=== PATIENT | male | born 1945 | race Caucasian/White ===

== ENCOUNTER → 2023-06-29 | Outpatient (CLI) | payer MEDICARE ==
[~2023-06-29] MED LIST: APIX5TAB PO; ATOR40TA71 PO; ESCI-8 PO; METF-444 PO; METO75TA PO
== END | disposition home or self-care (01) ==
LOC: RAH 09:18
PROVIDERS: ATTEND Family Medicine
DX: I72.3 Aneurysm of iliac artery (principal); N28.1 Cyst of kidney, acquired; R79.89 Other specified abnormal findings of blood chemistry
CPT/HCPCS: 76700

== ENCOUNTER → 2023-10-10 | Outpatient (CLI) | payer MEDICARE | END | disposition home or self-care (01) | LOC: SHCH 08:22 | PROVIDERS: ATTEND Internal Medicine Cardiovascular Disease | DX: I08.3 Combined rheumatic disorders of mitral, aortic and tricuspid valves (principal); I48.0 Paroxysmal atrial fibrillation | CPT/HCPCS: 93306 ==

== ENCOUNTER 2024-02-18 05:42 | Observation (INO) | payer MEDICARE ==
[2024-02-15 10:28] LABS: CREATININE 0.8 mg/dL (0.5-1.3); POTASSIUM 4.4 mmol/L (3.5-5.1)
[2024-02-15 10:47] VITALS: BP 137/92; PULSE 62; RESP 16; TEMP 97.3
--- NOTE | 2024-02-15 10:53 | EKG ---
[facility] Test Date: 2024-02-15 Test Time: 11:00:12 Pat Name: SHILA LITTLE Department: [facility] Room: Gender: M [employer] Tender: [id number] : 1945 Requested By: ELLIS ZHU Order Number: [id number] Reading MD: Ellis Zhu Measurements Intervals [place] Rate: 65 P: 0 [place]: 0 QRS: 48 QRSD: 120 T: 145 QT: 445 QTc: 465 Interpretive Statements Atrial fibrillation Nonspecific intraventricular conduction delay Probable anteroseptal infarct, old Abnormal T, probable ischemia, lateral leads Compared to ECG 05/11/2016 02:58:54 Intraventricular conduction delay now present T-wave abnormality now present Possible ischemia now present Sinus rhythm no longer present Atrial premature complex(es) no longer present First degree AV block no longer present Myocardial infarct finding still present Electronically Signed On 02-15-2024 16:16:24 MASH GRINDER by Ellis Zhu Please click the below link to view image of tracing.
[2024-02-15 10:58] LABS: B-TYPE NATRIURETIC PEPTIDE 283 pg/mL (0-100)
[2024-02-15 11:00] LABS: BASOPHILS # (AUTO) 0.05 K/uL (0.00-0.20); BASOPHILS % (AUTO) 0.8 % (0.0-5.0); EOSINOPHILS # (AUTO) 0.11 K/uL (0.00-0.70); EOSINOPHILS % (AUTO) 1.7 % (0.0-8.0); HEMATOCRIT 40.5 % (42-54); IMMATURE GRANULOCYTE ABSOLUTE 0.02 K/uL (0-1); LYMPHOCYTES # (AUTO) 1.1 K/uL (1.0-4.8); LYMPHOCYTES % (AUTO) 17.4 % (21.0-51.0); MEAN CORPUSCULAR HEMOGLOBIN 32.4 pg (27.0-33.0); MEAN CORPUSCULAR HGB CONC 32.8 g/dL (32.0-36.0); MEAN CORPUSCULAR VOLUME 98.5 fL (79-99); MONOCYTES # (AUTO) 0.6 K/uL (0.1-1.0); MONOCYTES % (AUTO) 9.2 % (3.0-13.0); NEUTROPHILS # (AUTO) 4.5 K/uL (1.8-7.7); NEUTROPHILS % (AUTO) 70.6 % (40.0-77.0); PLATELET COUNT (AUTO) 181 K/uL (130-400); RED BLOOD CELL COUNT(AUTO) 4.11 MIL/uL (4.50-6.20); RED CELL DISTRIBUTION WIDTH 14.5 % (11.0-15.5); WHITE BLOOD COUNT (AUTO) 6.3 K/uL (4.8-10.8)
[2024-02-15 11:19] LABS: PARTIAL THROMBOPLASTIN TIME 30.8 SEC (26.3-35.5); PROTHROMBIN TIME 14.3 SEC (9.6-11.6)
[2024-02-15 11:20] LABS: INR 1.35 (0.85-1.15)
[2024-02-15 11:27] LABS: APPEARANCE,URINE CLEAR (CLEAR); BILIRUBIN,URINE NEGATIVE (NEGATIVE); COLOR,URINE YELLOW (YELLOW); GLUCOSE, URINE (UA) NEGATIVE (NEGATIVE); KETONES,URINE 5 mg/dL (NEGATIVE); LEUKOCYTE ESTERASE ,URINE NEGATIVE Leu/uL (NEGATIVE); NITRATE,URINE NEGATIVE (NEGATIVE); OCCULT BLOOD,URINE LARGE (NEGATIVE); PH,URINE 5.5 (5.0-8.0); PROTEIN,URINE 20 mg/dL (NEGATIVE)
[2024-02-15 11:29] LABS: ADD UA MICROSCOPIC YES
[2024-02-15 11:44] LABS: MUCUS,URINE RARE LPF (None Seen); RBC,URINE TNTC /HPF (0-1); SQUAMOUS EPITHELIAL CELL,UR RARE /HPF (0-2)
--- NOTE | 2024-02-15 11:45 | HMCIMG ---
CHEST 1VW HISTORY: Preop COMPARISON: None FINDINGS: A frontal projection of the chest was obtained. No acute pulmonary infiltrates is seen. The heart is borderline enlarged. Degenerative changes are seen. Aortic calcifications are seen. Prominent interstitial markings are seen. IMPRESSION: 1. No acute pulmonary infiltrate is seen.
--- NOTE | 2024-02-15 15:23 | NUR ---
RE: LABS REPORTED PT/INR RESULTS TO ELISABET CRISTOBAL. NO NEW ORDERS RECEIVED.
[~2024-02-18] VITALS: Ht 175.3 cm; Wt 88.5 kg
[2024-02-18] VITALS (18 sets, daily range): BP systolic 140–160; BP diastolic 86–100; PULSE 62–88; RESP 16–20; TEMP 97.6–98.7; O2SAT 94–98
[~2024-02-18 05:42] MED LIST changes: +GLIM4TAB36 PO; +LOSA25TA41 PO; -METF-444 PO; +METO25TA6 PO; -METO75TA PO; +PRIMIDONE PO
[2024-02-18] MEDS: 0.9%NACL 1000ML 1,000 ML IV ONE (06:44)
[2024-02-18] MEDS ORDERED: LIDOCAINE HCL 400MG/20ML VIAL ONE (07:11)
[2024-02-18] MEDS ORDERED: IOHEXOL-350 50ML VIAL IV ONE (07:11)
[2024-02-18] MEDS ORDERED: HEParin 10,000 UNIT/10ML (1,000 UNIT/ML) VIAL ONE (07:11)
[2024-02-18] MEDS ORDERED: IOHEXOL 350 MG/ML 100ML INFUS..BTL IV ONE (07:11)
[2024-02-18] MEDS ORDERED: HEParin-NS 1,000 UNIT/500 ML 1,000 ML IV ONE (07:11)
[2024-02-18] MEDS ORDERED: NITROGLYCERIN 50MG VIAL ONE (07:11)
[2024-02-18] MEDS ORDERED: FENTanyl CITRate PF 50 MCG/1 ML 2ML VIAL ONE (07:28)
[2024-02-18] MEDS ORDERED: MIDAZOLAM HCL 1 MG/ML 2ML VIAL ONE ×2 (07:28→09:29)
[2024-02-18] MEDS ORDERED: BIVALIRUDIN 250 MG/VIAL IV ONE ×2 (08:05→08:58)
[2024-02-18] MEDS ORDERED: HEParin-NS 1,000 UNIT/500 ML 500 ML IV ONE ×2 (08:13→10:07)
[2024-02-18] MEDS ORDERED: IOHEXOL-350 75 ML VIAL IV ONE (09:52)
[2024-02-18] MEDS ORDERED: ASPIRIN 81MG CHEW TAB ONE (09:57)
[2024-02-18] MEDS ORDERED: TICAGrelor 90 MG TABLET ONE (09:57)
--- NOTE | 2024-02-18 10:27 | PRN ---
PROCEDURES: 1. Right common femoral arterial sheath placement. Six Samoan and then and then seven Samoan upgrade 2. Selective coronary angiogram. 3. Left heart catheterization. 4. Left ventriculogram. 5. Right heart catheterization 6. Right common femoral vein sheath placement seven Samoan Seven. Lithotripsy angioplasty and angioplasty to proximal mid LAD with the use of a 3 mm and 4 mm lithotripsy balloon as well as a 2 mm 2.5 mm and 3 mm balloon semi compliant Eight. 3.5 mm by 22 mm jaqueline Genesee stent to mid LAD deployed to 3.80 mm And 4 mm x 26 mm jaqueline Genesee stent to proximal and mid LAD in overlapping fashion deployed to 4 mm INDICATION: Chest pain Class three anginal line moderate MR DESCRIPTION OF PROCEDURE: The patient was brought to the catheterization suite and prepped and draped in sterile fashion. IV was started, and not already in place and both groins were exposed for arterial access. 1% lidocaine was used for local anesthesia and then a micropuncture kit was used to gain access once free-flowing blood was seen, modified Seldinger technique was utilized to place a 6 Samoan sheath into the right common femoral artery. Same technique was utilized to place a seven Samoan sheath in the right common femoral vein. Next, preformed JL4 and JR 4 catheters were used to selectively engage the [place] coronary vessels and multiple hand contrast injections were performed in different views to define the coronary anatomy. Next a 6 Samoan angled pigtail was used to cross the aortic valve. Pressure measurements were obtained and then right heart catheterization was performed. Protocol was followed. O2 saturations were obtained. There was however issues related to getting appropriate wedge and after diagnostic study had showed patient had critical LAD stenosis it was felt no further studies in the right heart needed to be performed. Catheter was pulled. A left ventriculogram was done in the 30 OSPINA position. Initial findings are as described below. FINDINGS: The left main artery trifurcates into the LAD ramus intermedius and left circumflex vessel and it was calcified with no significant stenosis present. The left anterior descending artery in its proximal mid segment calcified stenosis noted of 85-90%. After a large diagonal branch one there is noted to be 90% stenosis present. Ramus intermediate is free of any significant disease. The left circumflex artery was a nondominant system free of stenosis. The right coronary artery is a dominant vessel giving rise to the RPDA and RPL and has no stenosis in the body of this artery. Right heart catheterization revealed right ventricular systolic pressure 40/7 with a pulmonary artery pressure of 46/20. O2 saturations revealed no step-up and step-down. Cardiac output was calculated at 3.97 with a cardiac index of 1.94 INTERVENTIONAL REPORT: [] After diagnostic angiography was performed it was felt intervention should be done to LAD. We were a six Samoan system and initially started with a six Samoan system in one with the a capital Q five guide catheter into the left coronary artery. A run-through wire was then placed apical LAD under fluoroscopic guidance. After attempts were made to pass a lithotripsy balloon unsuccessfully then a guide liner six Samoan system was then put in place and we were still unable to deliver the shockwave balloon. We eventually went with a 2-0 by 12 sponge and balloon to pre dilate the mid LAD by diagonal branch 1. And went up to 2.15 mm for multiple inflations. Done with a 014 catheter we then exchanged the run-through wire were then iron man or grand slam wire for more support and then attempts were made to pass the 4 x 12 lithotripsy balloon to the mid LAD but were unsuccessful but I did use it to treat for approximately six treatments of the proximal and mid LAD up to 4 mm. Next attempts were made to pass a 3 mm shockwave distally but were unsuccessful. We are exchanging equipment we lost the system and it was at that time I decided to upsized to a seven Samoan system there was not a Q five guide catheter available but we did find a Q 4.5 guide catheter seven Samoan system and I went back down with the run-through wire. We then used a seven Samoan guide liner and placed a 3 mm by 12 mm shockwave system and a total of 10 beats were were done in the mid distal LAD. Next a 3 mm x 20 mm balloon was then placed into the same region and further dilated the entirety of the proximal and mid LAD. Next a 3.5 mm x 22 mm jaqueline Genesee stent was then placed into the mid LAD after diagonal branch 1. And deployed to 3.80 mm. Next a 4 mm by 26 mm jaqueline Genesee stent was then placed in an overlapping fashion with previously placed stent and deployed to 4.0 mm. Follow up contrast injection well no evidence of dissection or perforation with IVONNE three flow noted. It should be noted that diagonal branch 1. Was a large vessel with IVONNE three flow noted some ostial plaque redistribution seen. RECOMMENDATIONS: Patient will stay in the hospital overnight for IV hydration. We will hold off on transesophageal echocardiogram. Reschedule DONNA for tomorrow andres. YENI GALLEGO MD Feb 18, 2024 10:27
[2024-02-18] MEDS ORDERED: MIDAZOLAM HCL 1 MG/ML 5ML VIAL IV PRN (10:30)
[2024-02-18] MEDS ORDERED: acetaMINOPHEN WITH coDEINE 1 TAB TAB PO PRN (10:30)
[2024-02-18] MEDS ORDERED: DEXTROSE 50%-WATER 50 ML DISP.SYRIN IV PRN (10:30)
[2024-02-18] MEDS ORDERED: NITROGLYCERIN 0.4 MG SL TAB SL PRN (10:30)
[2024-02-18] MEDS ORDERED: GLUCAGON 1MG KIT 1 MG ML IM PRN (10:30)
[2024-02-18] MEDS: INSULIN humuLIN R 100 UNIT/ML 3ML SQ SCH (11:30)
[2024-02-18] MEDS ORDERED: IpraTROPium 0.5 MG/2.5 ML INH IH PRN (11:30)
[2024-02-18] MEDS ORDERED: ondanSETRON 4MG INJ IVP PRN (11:30)
[2024-02-18] MEDS: BUDESONIDE 0.5 MG/2 ML INH IH SCH (11:35)
--- NOTE | 2024-02-18 11:48 | HP ---
[facility] HISTORY AND PHYSICAL Date of Service: Feb 18, 2024 Time of Service: 11:48 HISTORY OF PRESENT ILLNESS: Date of service: 02/18/2024, [place] [facility] [place], 78-year-old male with history of hypertension, hyperlipidemia, type 2 diabetes mellitus, peripheral arterial disease, prior history of atrial flutter maintained on chronic anticoagulation with Eliquis, obstructive sleep apnea who is status post cardiac catheterization today. Patient does have underlying history of intermittent symptoms of shortness of breath with exertional activities. Patient was seen by Dr. Zhu with Cardiology as outpatient and underwent 2D echocardiogram which showed findings of significant mitral regurgitation. Plan was for cardiac catheterization today. Patient was found to have 85-90% stenosis involving the proximal to mid LAD. Patient underwent lithotripsy with angioplasty and MARITO stent placement to proximal and mid LAD. Plan is for patient to undergo DONNA tomorrow to assess severity of mitral regurgitation. Patient was seen at bedside postprocedure and denies significant chest pressure. He reports having mild shortness of breath postprocedure. Denies significant lower extremity swelling. We will monitor this patient closely. REVIEW OF SYSTEMS CONSTITUTIONAL: Denies fevers, chills, or night sweats. No unintentional weight loss reported. NEUROLOGICAL: Denies headache, amaurosis fugax, motor weakness, sensory deficit, vertigo/spinning sensation, gait abnormalities, or tremors. ENT: No hearing loss, otalgia, otorrhea, rhinitis, rhinorrhea, hoarseness, or sore throat. CARDIOVASCULAR: Denies any exertional angina, dyspnea on exertion, orthopnea, p aroxysmal nocturnal dyspnea, palpitations, life-threatening arrhythmias, claudication. PULMONARY: Denies any cough, congestion, reports having mild shortness of breath postprocedure SLEEP: Denies morning headaches, daytime somnolence or napping. Denies difficulty falling asleep, staying asleep, waking from sleep. Denies knowledge of snoring. GASTROINTESTINAL: Denies any type of dysphagia to either liquids or solids. Denies nausea, vomiting, pyrosis, early satiety, abdominal pain, diarrhea, constipation, or changes in stool consistency or caliber. Denies coffee-ground emesis, hematemesis, hematochezia, or melanotic stools. GENITOURINARY: Denies frequency, urgency, nocturia, hematuria or incontinence (Storage/Irritative symptoms.) Low urinary stream, straining to void, urinary intermittency or hesitancy, splitting of the voiding stream, terminal dribbling. ENDOCRINOLOGIC: Denies polyuria, polydipsia, polyphagia or heat/cold intolerances. HEMATOLOGIC: Denies thrombophilia/previous clots, or coagulopathy/bleeding disorders. ONCOLOGIC: Denies personal history of malignancy. DERMATOLOGIC: Denies rashes or pruritus. PSYCHIATRIC: Denies any suicidal or homicidal ideation. Denies hallucinations. PAST MEDICAL HISTORY: Type 2 diabetes mellitus, hyperlipidemia, hypertension, peripheral arterial disease, history of atrial flutter/atrial fibrillation with history of cardioversion in 2019, obstructive sleep apnea PAST SURGICAL HISTORY: History of hernia surgery, right knee surgery, history of eye surgery PAST SOCIAL HISTORY: Patient denies any active smoking or alcohol consumption, independent with ADLs and IADLs FAMILY HISTORY: Reports family history of type 2 diabetes mellitus Allergies: Denies known drug allergies Home medications: Glimepiride 4 mg b.i.d., losartan 25 mg daily, metoprolol tartrate 25 mg b.i.d., primidone 25 mg HS, apixaban 5 mg b.i.d., atorvastatin 40 mg daily, escitalopram 10 mg daily Medications: Coded Allergies: No Known Drug Allergies (Unverified Allergy, Unknown, 05/09/16) PHYSICAL EXAM GENERAL APPEARANCE: The patient is awake, alert, and oriented, in no acute cardiopulmonary distress. NEUROLOGICAL: Cranial nerves II-XII grossly intact. Motor is 5/5 in bilateral upper and lower extremities proximal to distal. No sensory deficits. HEENT: Face is symmetric. Pupils are equal and reactive. Extraocular movements are intact. NECK: Supple. No JVD. No thyromegaly. No submental, submandibular, pre- /postauricular, occipital or supraclavicular lymphadenopathy. CHEST: Normal chest expansion. No Telemetry. LUNGS: Absence of any rales, rhonchi or any wheezing. CARDIOVASCULAR: Regular. S1 and S2 normal. No appreciable rubs, murmurs or gallops. ABDOMEN: Soft, nontender, and nondistended. There is no rebound, voluntary gu arding, or rigidity. : Deferred. No Garcia. EXTREMITIES: Non-edematous and not cyanotic. No clubbing. Good capillary refill. SKIN: No skin breakdown. Vital Sign (Last 24 Hours) 02/18/24 02/18/24 02/18/24 06:15 11:39 11:40 Temp 97.9 Pulse 62 Resp 20 B/P (MAP) 140/92 Pulse Ox 95 O2 Delivery N/Cannula Low lpm O2 Flow Rate 3.0 LABS: Laboratory: Test 02/18/24 06:19 Range/Units Whole Blood Glucose 102 70-110 MG/DL Current Medications Medications (Trade) Dose Ordered Sig/Minh Route PRN Reason Start Time Stop Time Status Last Admin Dose Admin Acetaminophen/ Codeine Phosphate (TYLenol-coDEINE TAB) 1 tab Q4H PRN PO PAIN LEVEL 1 TO 3 02/18/24 10:30 03/19/24 10:29 Apixaban (EliquIS) 5 mg BID PO 02/18/24 21:00 03/19/24 20:59 Atorvastatin Calcium (LIPItor 40MG) 40 mg DAILY PO 02/19/24 09:00 03/20/24 08:59 Budesonide (Pulmicort 0.5 Mg/2ml) 0.5 mg Q12H IH 02/18/24 11:30 03/19/24 11:29 02/18/24 11:35 0.5 MG Clopidogrel Bisulfate (plaVIX 75MG) 75 mg DAILY PO 02/19/24 09:00 03/20/24 08:59 Dextrose (D50w) 50 ml AD PRN IV HYPOGLYCEMIA PROTOCOL 02/18/24 10:30 03/19/24 10:29 Fentanyl Citrate (FENTanyl CITRate PF 50 MCG/ 1 ML 2ML VIAL) 100 mcg AD PRN IVP SEDATION 02/18/24 10:30 Glucagon (Glucagon 1mg Kit) 1 mg AD PRN IM HYPOGLYCEMIA PROTOCOL 02/18/24 10:30 03/19/24 10:29 Home Med (Home Medication) (Escitalopram Oxalate 10 MG) DAILY PO 02/19/24 09:00 03/20/24 08:59 Insulin Human Regular (humuLIN R 100 UNIT/ML 3ML) INSULIN SLIDING SCAL... ACHS SQ 02/18/24 11:30 03/19/24 11:29 Ipratropium [place] (AtrovENT UD) 0.5 MG Q6H PRN IH SHORTNESS OF BREATH 02/18/24 11:30 03/19/24 11:29 Losartan Potassium (CozAAR 25MG TAB) 25 mg AM PO 02/19/24 09:00 03/20/24 08:59 Metoprolol Tartrate (loprESSOR) 25 mg BID PO 02/18/24 21:00 03/19/24 20:59 Midazolam HCl (Versed) 5 mg ONCE PRN IV SEDATION 02/18/24 10:30 02/18/24 11:22 DC Midazolam HCl (Versed) 5 mg ONCE PRN IVP SEDATION 02/18/24 11:30 Miscellaneous Medication (Glimepiride ) 5 mg BID PO 02/18/24 21:00 02/18/24 10:46 DC Nitroglycerin (Nitrostat) 0.4 mg AD PRN SL CHEST PAIN 02/18/24 10:30 03/19/24 10:29 Ondansetron HCl (zoFRAN 4MG INJ) 4 mg Q6H PRN IVP NAUSEA/VOMITING 02/18/24 11:30 03/19/24 11:29 Primidone (Mysoline) 25 mg HS PO 02/18/24 21:00 03/19/24 20:59 Sodium Chloride 1,000 ml @ 100 mls/hr Q10H IV 02/18/24 10:30 02/18/24 16:29 DIAGNOSTICS / RADIOLOGY: SERVICE [id number] REASON: PRE OP ORDERING PHYSICIAN: YENI ZHU MD PROCEDURE: CXR1VW - CHEST 1VW CHEST 1VW HISTORY: Preop COMPARISON: None FINDINGS: A frontal projection of the chest was obtained. No acute pulmonary infiltrates is seen. The heart is borderline enlarged. Degenerative changes are seen. Aortic calcifications are seen. Prominent interstitial markings are seen. IMPRESSION: 1. No acute pulmonary infiltrate is seen. DICTATED BY: JUA NPABLO HERNANDEZ MD DATE: 02/15/24 1142 ELECTRONICALLY SIGNED BY: JUAN PABLO HERNANDEZ MD DATE: 02/15/24 1145 ASSESSMENT: Status post cardiac catheterization with angioplasty and stenting to the proximal-mid LAD, by Dr. Zhu, 02/18/2024 Underlying history of moderate to severe mitral regurgitation, POA, pending DONNA assessment History of shortness of breath, POA Underlying history of obstructive sleep apnea, POA Hypertension, POA Hyperlipidemia, POA Peripheral arterial disease, POA History of atrial fibrillation/atrial flutter, POA History of chronic anticoagulation with Eliquis as outpatient, POA Type 2 diabetes mellitus, POA PLAN: Patient will be admitted to cardiac telemetry floor postprocedure Continue with aspirin and Eliquis post LAD stent placement Plan is for DONNA for assessment of severity of mitral regurgitation tomorrow by Dr. Zhu, patient will be kept NPO past midnight Continue with home medications once reconciled Continue with CPAP therapy at night order selector O2 sats closely, we will obtain a chest x-ray for the morning All labs will be repeated in the morning Patient will be started on Pulmicort twice daily and ipratropium nebulizers q.6 hours p.r.n. GI prophylaxis with Pepcid, DVT prophylaxis with Eliquis Date of service: 02/18/2024. Plan of care was discussed patient and family at bedside, Indra Weathers MD Advanced Care Planning: Which of the following were discussed: Hospice care: Yes __ No _X_ Therapeutic options: Yes _X_ No __ Advance directives: Yes _X_ No __ Other discussions: Discussed with who?: Patient Voluntary nature of this service was explained to the patient? Yes _x_ No __ Amount of time spent: 20 minutes INDRA WEATHERS MD Feb 18, 2024 11:48
[2024-02-18] MEDS: 0.9%NACL 1000ML 1,000 ML IV SCH (12:10)
[2024-02-18] MEDS: FENTanyl CITRate PF 50 MCG/1 ML 2ML VIAL IVP STA (14:23)
[2024-02-18] MEDS ORDERED: hydrALAZine 20MG/ML VIAL IV PRN (20:00)
[2024-02-18] MEDS: APIXaban 5 MG TABLET PO SCH (20:49)
[2024-02-18] MEDS: FAMOTIDINE 20MG TAB PO SCH (20:49)
[2024-02-18] MEDS: metoPROLOL tartRATE 25 MG TAB PO SCH (20:49)
[2024-02-18] MEDS: PRIMIDONE 50 MG TAB PO SCH (20:50)
[2024-02-18] MEDS ORDERED: GLIMEPIRIDE 5 MG PO SCH (21:00)
[2024-02-19 00:18] VITALS: BP 147/78; PULSE 66; RESP 20; TEMP 97.1
[2024-02-19 03:46] VITALS: BP 133/103; PULSE 69; RESP 17; TEMP 97.9
[2024-02-19 04:50] LABS: BASOPHILS # (AUTO) 0.06 K/uL (0.00-0.20); BASOPHILS % (AUTO) 0.8 % (0.0-5.0); EOSINOPHILS # (AUTO) 0.18 K/uL (0.00-0.70); EOSINOPHILS % (AUTO) 2.4 % (0.0-8.0); HEMATOCRIT 35.6 % (42-54); IMMATURE GRANULOCYTE ABSOLUTE 0.02 K/uL (0-1); LYMPHOCYTES # (AUTO) 1.2 K/uL (1.0-4.8); LYMPHOCYTES % (AUTO) 15.7 % (21.0-51.0); MEAN CORPUSCULAR HEMOGLOBIN 32.2 pg (27.0-33.0); MEAN CORPUSCULAR HGB CONC 33.1 g/dL (32.0-36.0); MEAN CORPUSCULAR VOLUME 97.3 fL (79-99); MONOCYTES # (AUTO) 0.8 K/uL (0.1-1.0); MONOCYTES % (AUTO) 10.3 % (3.0-13.0); NEUTROPHILS # (AUTO) 5.4 K/uL (1.8-7.7); NEUTROPHILS % (AUTO) 70.5 % (40.0-77.0); PLATELET COUNT (AUTO) 148 K/uL (130-400); RED BLOOD CELL COUNT(AUTO) 3.66 MIL/uL (4.50-6.20); RED CELL DISTRIBUTION WIDTH 14.3 % (11.0-15.5); WHITE BLOOD COUNT (AUTO) 7.6 K/uL (4.8-10.8)
[2024-02-19 04:55] LABS: ALBUMIN 3.1 g/dL (3.5-5.0); BILIRUBIN,TOTAL 0.9 mg/dL (0.2-1.0); CREATININE 0.8 mg/dL (0.5-1.3); MAGNESIUM 1.7 mg/dL (1.80-2.40); POTASSIUM 3.7 mmol/L (3.5-5.1); TOTAL PROTEIN, SERUM 6.3 g/dL (6.0-8.3)
[2024-02-19] MEDS ORDERED: PoTASSium chloRIDE 20MEQ/100ML 100 ML IV PRN (05:30)
[2024-02-19] MEDS ORDERED: PoTASSium chl 10% ELIXIR 20MEQ 20 MEQ/15 ML UDCUP PO PRN (05:30)
[2024-02-19] MEDS: MAGNESIUM 2GM PREMIX 50ML 50 ML IV PRN (05:44)
[2024-02-19] MEDS: PoTASSium chloRIDE 20MEQ ER 20 MEQ ERTAB PO PRN (05:45)
[2024-02-19 07:24] VITALS: PULSE 74; RESP 19; O2SAT 98
[2024-02-19 07:40] VITALS: BP 140/96; PULSE 82; RESP 20; TEMP 97.6
[2024-02-19] MEDS: LIDOCAINE HCL 2% VISCOUS 15 ML UDCUP PO ONE (07:51)
[2024-02-19] MEDS: LIDOCAINE HCL 2% VISCOUS 15 ML UDCUP ONE (07:51)
--- NOTE | 2024-02-19 08:37 | PN ---
PROGRESS NOTE PROBLEM LIST: Unstable angina Critical LAD stenosis Status post lithotripsy angioplasty and stent placement to proximal mid LAD, please see separate report Moderate MR INTERIM HISTORY OF PRESENT ILLNESS: Patient did well overnight no complaints of chest pain pressure tightness. Telemetry was unremarkable other than his chronic AFib no pauses blocks noted. Patient has been reinitiated on anticoagulation and antiplatelet therapy. Patient did develop low concerning hematoma which was adequately addressed by staff. H&H basic metabolic profile stable REVIEW OF SYSTEMS: No fever, headache, chest pain, abdominal pain, nausea, vomiting, or diarrhea. VITAL SIGNS Vital Signs Date Time Temp Pulse Resp B/P (MAP) Pulse Ox O2 Delivery O2 Flow Rate FiO2 02/19/24 07:40 97.5 82 20 140/96 94 Nasal Cannula 3.0 02/19/24 07:24 21 Laboratory Tests 02/19/24 03:54 LABS/MEDS Laboratory Tests Test 02/18/24 15:56 02/18/24 19:55 02/19/24 03:54 02/19/24 05:27 Whole Blood Glucose 117 MG/DL (70-110) H 139 MG/DL (70-110) H 82 MG/DL (70-110) White Blood Count 7.6 K/uL (4.8-10.8) Red Blood Count 3.66 MIL/uL (4.50-6.20) L Hemoglobin 11.8 g/dL (14.0-18.0) L Hematocrit 35.6 % (42-54) L Mean Corpuscular Volume 97.3 fL (79-99) Mean Corpuscular Hemoglobin 32.2 pg (27.0-33.0) Mean Corpuscular Hemoglobin Concent 33.1 g/dL (32.0-36.0) Red Cell Distribution Width 14.3 % (11.0-15.5) Platelet Count 148 K/uL (130-400) Mean Platelet Volume 11.9 fL (7.5-10.5) H Immature Granulocyte % (Auto) 0.3 % (0-1) Neutrophils (%) (Auto) 70.5 % (40.0-77.0) Lymphocytes (%) (Auto) 15.7 % (21.0-51.0) L Monocytes (%) (Auto) 10.3 % (3.0-13.0) Eosinophils (%) (Auto) 2.4 % (0.0-8.0) Basophils (%) (Auto) 0.8 % (0.0-5.0) Neutrophils # (Auto) 5.4 K/uL (1.8-7.7) Lymphocytes # (Auto) 1.2 K/uL (1.0-4.8) Monocytes # (Auto) 0.8 K/uL (0.1-1.0) Eosinophils # (Auto) 0.18 K/uL (0.00-0.70) Basophils # (Auto) 0.06 K/uL (0.00-0.20) Absolute Immature Granulocyte (auto 0.02 K/uL (0-1) Nucleated Red Blood Cells 0.0 % (0.0-0.19) Sodium Level 140 mmol/L (136-145) Potassium Level 3.7 mmol/L (3.5-5.1) Chloride Level 102 mmol/L (101-111) Carbon Dioxide Level 30 mmol/L (21-32) Blood Urea Nitrogen 9 mg/dL (7-18) Creatinine 0.8 mg/dL (0.5-1.3) Glomerular Filtration Rate Calc 91 mL/min (>90) Random Glucose 92 mg/dL (70-105) Total Calcium 8.4 mg/dL (8.5-10.1) L Magnesium Level 1.70 mg/dL (1.80-2.40) L Total Bilirubin 0.9 mg/dL (0.2-1.0) Aspartate Amino Transf (AST/SGOT) 40 U/L (10-37) H Alanine Aminotransferase (ALT/SGPT) 33 U/L (12-78) Alkaline Phosphatase 89 U/L (50-136) B-Type Natriuretic Peptide 252 pg/mL (0-100) H Total Protein 6.3 g/dL (6.0-8.3) Albumin 3.1 g/dL (3.5-5.0) L Current Medications Sodium Chloride 1,000 ml @ As Directed STK-MED ONCE IV Last administered on 02/18/24at 06:44; Start 02/18/24 at 06:39; Stop 02/18/24 at 06:39; Status DC Lidocaine HCl 20 ml STK-MED ONCE .ROUTE; Start 02/18/24 at 07:11; Stop 02/18/24 at 07:13; Status DC Iohexol 35,000 mg STK-MED ONCE IV; Start 02/18/24 at 07:11; Stop 02/18/24 at 07:13; Status DC Iohexol 50 ml STK-MED ONCE IV; Start 02/18/24 at 07:11; Stop 02/18/24 at 07:13; Status DC Heparin Sodium (Porcine) 10,000 unit STK-MED ONCE .ROUTE; Start 02/18/24 at 07:11; Stop 02/18/24 at 07:13; Status DC Heparin Sodium/ Sodium Chloride 1,000 ml @ As Directed STK-MED ONCE IV; Start 02/18/24 at 07:11; Stop 02/18/24 at 07:13; Status DC Nitroglycerin 50 mg STK-MED ONCE .ROUTE; Start 02/18/24 at 07:11; Stop 02/18/24 at 07:13; Status DC Fentanyl Citrate 100 mcg STK-MED ONCE .ROUTE; Start 02/18/24 at 07:28; Stop 02/18/24 at 07:33; Status DC Midazolam HCl 2 mg STK-MED ONCE .ROUTE; Start 02/18/24 at 07:28; Stop 02/18/24 at 07:33; Status DC Bivalirudin 250 mg STK-MED ONCE IV; Start 02/18/24 at 08:05; Stop 02/18/24 at 08:06; Status DC Heparin Sodium/ Sodium Chloride 500 ml @ As Directed STK-MED ONCE IV; Start 02/18/24 at 08:13; Stop 02/18/24 at 08:13; Status DC Bivalirudin 250 mg STK-MED ONCE IV; Start 02/18/24 at 08:58; Stop 02/18/24 at 08:58; Status DC Midazolam HCl 2 mg STK-MED ONCE .ROUTE; Start 02/18/24 at 09:29; Stop 02/18/24 at 09:29; Status DC Iohexol 75 ml STK-MED ONCE IV; Start 02/18/24 at 09:52; Stop 02/18/24 at 09:52; Status DC Aspirin 81 mg STK-MED ONCE .ROUTE; Start 02/18/24 at 09:57; Stop 02/18/24 at 09:57; Status DC Ticagrelor 90 mg STK-MED ONCE .ROUTE; Start 02/18/24 at 09:57; Stop 02/18/24 at 09:57; Status DC Heparin Sodium/ Sodium Chloride 500 ml @ As Directed STK-MED ONCE IV; Start 02/18/24 at 10:07; Stop 02/18/24 at 10:07; Status DC Acetaminophen/ Codeine Phosphate 1 tab Q4H PRN PO; Start 02/18/24 at 10:30; Stop 03/19/24 at 10:29 Sodium Chloride 1,000 ml @ 100 mls/hr Q10H IV Last administered on 02/18/24at 12:10; Start 02/18/24 at 10:30; Stop 02/18/24 at 16:29; Status DC Clopidogrel Bisulfate 75 mg DAILY PO; Start 02/19/24 at 09:00; Stop 03/20/24 at 08:59 Nitroglycerin 0.4 mg AD PRN SL; Start 02/18/24 at 10:30; Stop 03/19/24 at 10:29 Dextrose 50 ml AD PRN IV; Start 02/18/24 at 10:30; Stop 03/19/24 at 10:29 Glucagon 1 mg AD PRN IM; Start 02/18/24 at 10:30; Stop 03/19/24 at 10:29 Apixaban 5 mg BID PO; Start 02/18/24 at 21:00; Stop 03/19/24 at 20:59 Atorvastatin Calcium 40 mg DAILY PO; Start 02/19/24 at 09:00; Stop 03/20/24 at 08:59 Losartan Potassium 25 mg AM PO; Start 02/19/24 at 09:00; Stop 03/20/24 at 08:59 Metoprolol Tartrate 25 mg BID PO Last administered on 02/18/24at 20:49; Start 02/18/24 at 21:00; Stop 03/19/24 at 20:59 Home Med (Escitalopram Oxalate 10 MG) DAILY PO; Start 02/19/24 at 09:00; Stop 03/20/24 at 08:59 Miscellaneous Medication 5 mg BID PO; Start 02/18/24 at 21:00; Stop 02/18/24 at 10:46; Status DC Primidone 25 mg HS PO Last administered on 02/18/24at 20:50; Start 02/18/24 at 21:00; Stop 03/19/24 at 20:59 Fentanyl Citrate 100 mcg AD PRN IVP; Start 02/18/24 at 10:30 Midazolam HCl 5 mg ONCE PRN IV; Start 02/18/24 at 10:30; Stop 02/18/24 at 11:22; Status DC Budesonide 0.5 mg Q12H IH Last administered on 02/19/24at 07:10; Start 02/18/24 at 11:30; Stop 03/19/24 at 11:29 Ipratropium [place] 0.5 MG Q6H PRN IH; Start 02/18/24 at 11:30; Stop 03/19/24 at 11:29 Ondansetron HCl 4 mg Q6H PRN IVP; Start 02/18/24 at 11:30; Stop 03/19/24 at 11:29 Insulin Human Regular INSULIN SLIDING SCAL... ACHS SQ; Start 02/18/24 at 11:30; Stop 03/19/24 at 11:29 Midazolam HCl 5 mg ONCE PRN IVP; Start 02/18/24 at 11:30 Aspirin 81 mg DAILY PO; Start 02/19/24 at 09:00; Stop 03/20/24 at 08:59 Famotidine 20 mg BID PO Last administered on 02/18/24at 20:49; Start 02/18/24 at 21:00; Stop 03/19/24 at 20:59 Fentanyl Citrate 50 mcg ONCE STAT IVP Last administered on 02/18/24at 14:23; Start 02/18/24 at 14:13; Stop 02/18/24 at 14:16; Status DC Hydralazine HCl 5 mg Q6H PRN IV; Start 02/18/24 at 20:00; Stop 03/19/24 at 19:59 Magnesium Sulfate 50 ml @ 0 mls/hr PROTOCOL PRN IV Last administered on 02/19/24at 05:44; Start 02/19/24 at 05:30; Stop 03/20/24 at 05:29 Potassium Chloride 100 ml @ 100 mls/hr AD PRN IV; Start 02/19/24 at 05:30; Stop 03/20/24 at 05:29 Potassium Chloride 20 meq AD PRN PO; Start 02/19/24 at 05:30; Stop 03/20/24 at 05:29 Potassium Chloride 20 meq AD PRN PO Last administered on 02/19/24at 05:45; Start 02/19/24 at 05:30; Stop 03/20/24 at 05:29 Lidocaine HCl 15 ml STK-MED ONCE .ROUTE; Start 02/19/24 at 07:44; Stop 02/19/24 at 07:44; Status DC Lidocaine HCl 15 ml ONCE ONCE PO Last administered on 02/19/24at 07:51; Start 02/19/24 at 08:00; Stop 02/19/24 at 08:01; Status DC Naloxone HCl 0.4 mg STK-MED ONCE .ROUTE; Start 02/19/24 at 07:54; Stop 02/19/24 at 07:54; Status DC PHYSICAL EXAMINATION: GENERAL: No acute distress. HEENT: Normocephalic, atraumatic. CARDIAC: Positive S1 and S2. No murmurs. LUNGS: Clear to auscultation bilaterally. ABDOMEN: Bowel sounds present, soft, nontender. EXTREMITIES: No edema bilaterally. Right groin with mild tenderness and ecchymosis NEUROLOGIC: Cranial nerves 2-12 grossly intact. PSYCHIATRIC: Calm. TELEMETRY: AFib rate controlled ASSESSMENT: Unstable angina Critical LAD stenosis Status post lithotripsy angioplasty and stent placement to proximal mid LAD Status post transesophageal echocardiogram revealing only moderate mitral regurgitation PLAN: At this time patient can be dismissed home. Patient should follow up with triple therapy for 30 days and then once aspirin is completed he will maintained on clopidogrel and Eliquis. In regards to patient's valvular heart disease do not think any further intervention is necessary at this time. We will see how patient does after critical LAD stenosis has been addressed and he will follow up to see us in 2-4 weeks. Patient has been instructed on no heavy lifting 5 lb or greater for 5 days. Patient has been instructed on the importance of medication compliance with his antiplatelet therapy. YENI GALLEGO MD Feb 19, 2024 08:37
[2024-02-19] MEDS: MIDAZOLAM HCL 1 MG/ML 2ML VIAL IVP PRN (08:54)
[2024-02-19] MEDS: FENTanyl CITRate PF 50 MCG/1 ML 2ML VIAL IVP PRN (08:55)
[2024-02-19] MEDS: NALoxone HCL 0.4 MG/1 ML ML ONE (08:56)
[2024-02-19] MEDS: (Escitalopram Oxalate 10 MG) PO SCH (09:00)
--- NOTE | 2024-02-19 09:38 | HMCIMG ---
CHEST 1VW REASON: assess for any worsening infiltrates in the lungs COMPARISON: 02/15/2024 FINDINGS: Single view of the chest was obtained. Lungs are clear. There is borderline heart size, unchanged. There is no pulmonary vascular congestion. Mediastinum and bony thorax appear unremarkable. IMPRESSION: 1. Borderline heart size, unchanged, no acute finding.
[2024-02-19] MEDS: LoSARTan 25 MG TABLET PO SCH (10:13)
[2024-02-19] MEDS: atorVAStatin 40 MG TABLET PO SCH (10:13)
[2024-02-19] MEDS: cloPIDOgrel 75MG TAB PO SCH (10:13)
[2024-02-19] MEDS: ASPIRIN 81MG CHEW TAB PO SCH (10:14)
[2024-02-19] MEDS ORDERED: CLOP-31 PO (10:19)
[2024-02-19] MEDS ORDERED: ASPI-1005 PO (10:19)
--- NOTE | 2024-02-19 10:33 | DS ---
Discharge Summary Hospital Course Summary: 78-year-old male presented for an elective heart catheterization where lithotripsy and angioplasty to the proximal and mid LAD was done and a 3.5 mm x 22 mm jaqueline [place] stent to the mid-LAD was deployed. A 4 mm x 26 mm jaqueline [place] stent was also placed to the proximal and mid LAD in an overlapping fashion. Patient tolerated the procedure well see the op note for more details. Due to the quantity of contrast received during the procedure cardiology admitted him for observation overnight. He was also noted to have mitral valve stenosis and a LAVELL was ordered for the following morning. The LAVELL was completed, patient did have some valvular heart disease however no further intervention was recommended. By hospital day two the patient was cleared by Cardiology to be discharged home and will follow up with them in 2-4 weeks. He is to continue on dual antiplatelet therapy and anticoagulation. . Global Professional(s): Cardiology Procedure(s): CHEST 1VW REASON: assess for any worsening infiltrates in the lungs COMPARISON: 02/15/2024 FINDINGS: Single view of the chest was obtained. Lungs are clear. There is borderline heart size, unchanged. There is no pulmonary vascular congestion. Mediastinum and bony thorax appear unremarkable. IMPRESSION: 1. Borderline heart size, unchanged, no acute finding. Assessment/Plan: Status post cardiac catheterization with angioplasty and stenting to the proximal-mid LAD, by Dr. Zhu, 02/18/2024 Underlying history of moderate to severe mitral regurgitation, POA, pending lavell has been MItral valve stenosis History of shortness of breath, POA Underlying history of obstructive sleep apnea, POA Hypertension, POA Hyperlipidemia, POA Peripheral arterial disease, POA History of atrial fibrillation/atrial flutter, POA History of chronic anticoagulation with Eliquis as outpatient, POA Type 2 diabetes mellitus, POA Discharge Instructions: Follow up with PCP in 3-7 days Follow up with metal pattern maker in 2-4 weeks Home Medications: Reported Medications [Primidone ] No Conflict Check, 25 MG PO HS 02/15/24 Glimepiride (Glimepiride) 4 Mg Tablet, 5 MG PO BID, TAB 02/15/24 Losartan Potassium (Losartan Potassium) 25 Mg Tablet, 25 MG PO AM, TAB 02/15/24 Metoprolol Tartrate (Metoprolol Tartrate) 25 Mg Tablet, 25 MG PO BID, TAB 02/15/24 Apixaban (Eliquis) 5 Mg Tablet, 5 MG PO BID, TAB 05/09/16 Escitalopram Oxalate (Escitalopram Oxalate) 10 Mg Tablet, 10 MG PO DAILY, TAB 05/09/16 Atorvastatin Calcium (Atorvastatin Calcium) 40 Mg Tablet, 40 MG PO DAILY, TAB 05/09/16 Discontinued Reported Medications Metformin HCl (Metformin HCl) 500 Mg Tablet, 500 MG PO BID, TAB 05/09/16 Metoprolol Tartrate (Metoprolol Tartrate) 75 Mg Tablet, 75 MG PO BID, TAB 05/09/16 New Medications: Aspirin (Aspirin 81MG Chew Tab) 81 Mg Tab.chew 81 MG PO DAILY, #30 TAB.CHEW 0 Refills Clopidogrel Bisulfate (Plavix) 75 Mg Tablet 75 MG PO DAILY, #30 TAB 0 Refills Continued Medications: Apixaban (Eliquis) 5 Mg Tablet 5 MG PO BID, TAB Atorvastatin Calcium (Atorvastatin Calcium) 40 Mg Tablet 40 MG PO DAILY, TAB Escitalopram Oxalate (Escitalopram Oxalate) 10 Mg Tablet 10 MG PO DAILY, TAB Glimepiride (Glimepiride) 4 Mg Tablet 5 MG PO BID, TAB Losartan Potassium (Losartan Potassium) 25 Mg Tablet 25 MG PO AM, TAB Metoprolol Tartrate (Metoprolol Tartrate) 25 Mg Tablet 25 MG PO BID, TAB [Primidone ] () 25 MG PO HS Time spent arranging discharge: 31-60 minutes ANGELA SOLOMON MD Feb 19, 2024 10:33
[2024-02-19 10:34] VITALS: O2SAT 95
[2024-02-19 11:47] VITALS: BP 126/90; PULSE 74; RESP 20; TEMP 98.2
--- NOTE | 2024-02-25 11:40 | HMCSR ---
APPROVED REPORT EXAM: Transesophageal echocardiogram with color flow Doppler. INDICATION ICD: Mitral Regurgitation PROCEDURE After obtaining informed consent, patient underwent transesophageal echo in the 232 15 mL 2% Viscous Lidocaine was given as a topical anesthetic prior to the administration of the consc ious sedation. Type of Sedation: please refer to medication administration record. Sedation was administered by please refer to medication administration record. Sedation was achieved with please refer to medication administration record intravenously. Transesophageal probe was inserted and advanced into esophagus without difficulty by Ellis Zhu MD. DONNA was performed and images were obtained, probe was removed without complications. Throughout the procedure, the blood pressure, pulse oximetry, cardiac rhythm, and rate were monitored . The patient tolerated the procedure without adverse effects. Recovery from conscious sedation was une ventful and vital signs were stable. Left Ventricle Left ventricular cavity size is normal. Mild concentric left ventricular hypertrophy. LVEF is 50-55%. Right Ventricle The right ventricle is mildly dilated. Right ventricular systolic function is reduced. Atria The left atrium is severely dilated. No left atrial appendage thrombus noted. Evidence of PFO/ASD by color doppler. The right atrium is severely dilated. Aortic Valve Aortic valve is trileaflet. Trace of aortic regurgitation is present. There is no aortic valvular chelsy nosis. 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 Mitral valve leaflets open well. There is moderate mitral valve regurgitation noted. There is no mitral valve stenosis. Tricuspid Valve Tricuspid valve leaflets appear normal. There is mild tricuspid valve regurgitation noted. Pulmonic Valve The pulmonary valve is normal in structure and function. There is trace pulmonic valvular regurgitati on. Great Vessels The aortic root is normal in size. Ascending aorta is normal in size. Descending aorta is normal in s ize. Pericardium No pericardial effusion. Conclusion The left atrium is severely dilated. No left atrial appendage thrombus noted. Evidence of PFO/ASD by color doppler. There is moderate mitral valve regurgitation noted.
== END 2024-02-19 12:40 | disposition home or self-care (01) ==
LOC: DAH 05:42 → DAHIP 05:43 → 2AH 11:00
PROVIDERS: ADMIT Internal Medicine; ATTEND Internal Medicine
DX: I34.0 Nonrheumatic mitral (valve) insufficiency (principal); R06.02 Shortness of breath; I25.110 Atherosclerotic heart disease of native coronary artery with unstable angina pectoris; I48.92 Unspecified atrial flutter; G47.33 Obstructive sleep apnea (adult) (pediatric); E11.51 Type 2 diabetes mellitus with diabetic peripheral angiopathy without gangrene; I73.9 Peripheral vascular disease, unspecified; I10 Essential (primary) hypertension; E78.5 Hyperlipidemia, unspecified; I87.2 Venous insufficiency (chronic) (peripheral); Z79.01 Long term (current) use of anticoagulants; Z79.899 Other long term (current) drug therapy
CPT/HCPCS: 80048; 83880 ×2; 85025 ×2; 85610; 85730; 81001; 36415 ×2; 71045 ×2; 93005; 92972; 93460; 96374; 82948 ×5; 94660; 94664; 96375; 83735; 80053; 93325; 93312; C1894 ×5; C1769 ×3; C1874 ×3; C1725 ×2; C1887 ×5; C1761 ×2; Q9965 ×2; G0378 ×24; J3010 ×3; J3490 ×2; J7030; J1644 ×4; J2250 ×3; J0583 ×2; Q9967 ×3; A4215; A4223 ×3; A4222; A4221; A4663; A4216; A4606; C9600; J3475; 94640; 99156; 99157; J2310

== ENCOUNTER 2024-05-26 07:15 | Day surgery (SDC) | payer MEDICARE ==
[2024-05-23 13:00] LABS: BASOPHILS # (AUTO) 0.05 K/uL (0.00-0.20); BASOPHILS % (AUTO) 0.9 % (0.0-5.0); EOSINOPHILS # (AUTO) 0.11 K/uL (0.00-0.70); EOSINOPHILS % (AUTO) 2.1 % (0.0-8.0); IMMATURE GRANULOCYTE ABSOLUTE 0.01 K/uL (0-1); LYMPHOCYTES % (AUTO) 18.9 % (21.0-51.0); MEAN CORPUSCULAR HEMOGLOBIN 31.2 pg (27.0-33.0); MEAN CORPUSCULAR HGB CONC 33.3 g/dL (32.0-36.0); MEAN CORPUSCULAR VOLUME 93.7 fL (79-99); MONOCYTES # (AUTO) 0.7 K/uL (0.1-1.0); MONOCYTES % (AUTO) 12.2 % (3.0-13.0); NEUTROPHILS # (AUTO) 3.5 K/uL (1.8-7.7); NEUTROPHILS % (AUTO) 65.7 % (40.0-77.0); PLATELET COUNT (AUTO) 189 K/uL (130-400); RED BLOOD CELL COUNT(AUTO) 4.59 MIL/uL (4.50-6.20); RED CELL DISTRIBUTION WIDTH 14.9 % (11.0-15.5); WHITE BLOOD COUNT (AUTO) 5.3 K/uL (4.8-10.8)
[2024-05-23 13:01] VITALS: BP 126/75; PULSE 60; RESP 16; TEMP 97.5
[2024-05-23 13:01] LABS: CREATININE 0.9 mg/dL (0.5-1.3); POTASSIUM 5.2 mmol/L (3.5-5.1)
[2024-05-23 13:06] LABS: INR 1.35 (0.85-1.15); PROTHROMBIN TIME 13.9 SEC (9.6-11.6)
[2024-05-23 13:07] LABS: PARTIAL THROMBOPLASTIN TIME 29.8 SEC (26.3-35.5)
--- NOTE | 2024-05-23 16:12 | NUR ---
RE: LABS REPORTED BMP RESULTS TO DR WILLIAM, NO NEW ORDERS RECEIVED.
[2024-05-26] VITALS (17 sets, daily range): BP systolic 105–142; BP diastolic 58–88; PULSE 51–67; RESP 10–16; TEMP 97
[~2024-05-26] VITALS: Ht 175.3 cm; Wt 84.8 kg
[~2024-05-26 07:15] MED LIST changes: +DRON400T7 PO; -GLIM4TAB36 PO; -LOSA25TA41 PO; +LOSA50TA64 PO; -METO25TA6 PO; +PRIM50TA23 PO; -PRIMIDONE PO
[2024-05-26] MEDS: 0.9%NACL 1000ML 1,000 ML IV SCH (08:00)
--- NOTE | 2024-05-26 08:20 | EKG ---
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
[2024-05-26] MEDS ORDERED: proPOFol 10 MG/ML 20ML VIAL IV ONE (09:26)
[2024-05-26] MEDS ORDERED: SUCCINYLCHOLINE CHLORIDE 20 MG/ML 10 ML VIAL ONE (09:27)
[2024-05-26] MEDS ORDERED: phenylEPHRINE HCL 10 MG/ML 1ML VIAL IV ONE (09:27)
--- NOTE | 2024-05-26 09:42 | NUR ---
CARDIOVERSION: APPROPRIATE TIME OUT PROCEDURE WAS PERFORMED INCLUDING IDENTIFICATION OF TH PATIENT, PHYSICIAN, PROCEDURE, PATIENTS DATE OF AND THERE WERE NO SAFETY ISSUES IDENTIFIED. THE PATIENT PARTICIPATED ACTIVELY IN THIS. THERE WERE NO SAFETY ISSUES IDENTIFIED. MEDICATION GIVEN BY DR. RUELAS AT 09:43 AM. PT WAS SHOCKED AT 200 JOULES AT 09:[address] CLARITA WILLIAM. CARDIOVERSION SUCCESSFUL. PT TOLERATED PROCEDURE WELL.
--- NOTE | 2024-05-26 10:46 | PRN ---
Procedure Note INDICATION FOR PROCEDURE: Persistent atrial fibrillation PROCEDURE: Cardioversion DATE OF PROCEDURE: 05/26/24 VIOLIN REPAIRER: Cullen William MD PROCEDURE NOTE: The patient was brought to the day patient area in a fasting state. Anesthesia was provided by the anesthesia service. A synchronized shock of 200 joules was delivered resulting in sinus rhythm. The patient tolerated the procedure well. There were no complications. COMPLICATIONS: None IMPRESSION: Persistent atrial fibrillation status post successful cardioversion PLAN: 1. The patient will be observed and discharged home later today. 2. Follow-up with me in the office in approximately two weeks. CULLEN WILLIAM MD May 26, 2024 10:46
--- NOTE | 2024-05-26 11:16 | EKG ---
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
== END 2024-05-26 10:40 | disposition home or self-care (01) ==
LOC: DAH 07:15
PROVIDERS: ATTEND Internal Medicine Cardiovascular Disease
DX: I48.19 Other persistent atrial fibrillation (principal); E78.5 Hyperlipidemia, unspecified; I73.9 Peripheral vascular disease, unspecified; E11.9 Type 2 diabetes mellitus without complications; I10 Essential (primary) hypertension; I25.10 Atherosclerotic heart disease of native coronary artery without angina pectoris; E66.9 Obesity, unspecified; G47.33 Obstructive sleep apnea (adult) (pediatric); Z95.5 Presence of coronary angioplasty implant and graft; Z99.89 Dependence on other enabling machines and devices; Z79.82 Long term (current) use of aspirin; Z79.84 Long term (current) use of oral hypoglycemic drugs; Z98.890 Other specified postprocedural states; Z68.28 Body mass index [BMI] 28.0-28.9, adult; Z79.899 Other long term (current) drug therapy
CPT/HCPCS: 80048; 85025; 85610; 85730; 36415; 92960; 82948; 93005 ×2; A4223 ×2; J0330; J7030; J2704; J2371; A4215; A4222; A4221; A4663; A4216; A4606; 99156; J3490

== ENCOUNTER 2024-12-09 05:52 | Day surgery (SDC) | payer MEDICARE ==
[2024-12-05 13:48] LABS: IMMATURE GRANULOCYTE ABSOLUTE 0.04 K/uL (0-1); NUCLEATED RED BLOOD CELLS 0.0 % (0.0-0.19); PLATELET COUNT (AUTO) 196 K/uL (130-400); RED BLOOD CELL COUNT(AUTO) 4.09 MIL/uL (4.50-6.20); RED CELL DISTRIBUTION WIDTH 15.2 % (11.0-15.5); WHITE BLOOD COUNT (AUTO) 7.2 K/uL (4.8-10.8)
[2024-12-05 13:54] LABS: CREATININE 0.8 mg/dL (0.5-1.3); GLOMERULAR FILTR. RATE CALC 91.0 mL/min (>90); GLUCOSE,RANDOM 98.0 mg/dL (70-105); SODIUM SERUM 137.0 mmol/L (136-145); UREA NITROGEN, BLOOD 11.0 mg/dL (7-18)
[2024-12-05 14:03] VITALS: BP 137/82; PULSE 69; RESP 18; TEMP 97.9
[2024-12-05 14:03] LABS: INR 1.33 (0.85-1.15)
--- NOTE | 2024-12-05 16:07 | EKG ---
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
[~2024-12-09] VITALS: Ht 175.3 cm; Wt 86.2 kg
[2024-12-09] VITALS (20 sets, daily range): BP systolic 116–146; BP diastolic 69–106; PULSE 52–69; RESP 14–17; TEMP 96.8–97.3
[~2024-12-09 05:52] MED LIST changes: -DRON400T7 PO; +METO25TA6 PO
[2024-12-09] MEDS: 0.9%NACL 1000ML 1,000 ML IV ONE (06:36)
[2024-12-09] MEDS ORDERED: LIDOCAINE PF 100MG/5ML (2%) SYRINGE 5ML ONE (07:03)
[2024-12-09] MEDS ORDERED: MIDAZOLAM HCL 1 MG/ML 2ML VIAL ONE ×2 (07:04→12:14)
[2024-12-09] MEDS ORDERED: SUCCINYLCHOLINE CHLORIDE 20 MG/ML 10 ML VIAL ONE (07:04)
[2024-12-09] MEDS ORDERED: SUGAMMADEX SODIUM 200 MG/2 ML VIAL IV ONE (07:21)
[2024-12-09] MEDS ORDERED: HEParin-NS 1,000 UNIT/500 ML 1,500 ML IV ONE (07:40)
[2024-12-09] MEDS ORDERED: LIDOCAINE HCL 400MG/20ML VIAL ONE (07:40)
[2024-12-09] MEDS ORDERED: SODIUM BICARB 50MEQ 50ML VIAL 50 ML ONE (07:40)
[2024-12-09] MEDS ORDERED: PANT40TA55 PO (13:41)
[2024-12-09] MEDS ORDERED: SUCR1ORA15 PO (13:41)
[2024-12-09] MEDS ORDERED: DRON400T7 PO (14:37)
[2024-12-09] MEDS: SUCRALFATE 1 GM/10 ML PO ONE (15:12)
--- NOTE | 2024-12-09 18:23 | EKG ---
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: [id number] : 1945 Requested By: CLARITA WILLIAM Order Number: [id number] Reading MD: Yang Prakash Measurements Intervals [place] Rate: 52 P: 55 WI: 234 QRS: 54 QRSD: 106 T: 103 QT: 448 QTc: 419 Interpretive Statements Sinus rhythm Prolonged [place] interval Probable left atrial enlargement Anteroseptal infarct, age indeterminate Compared to ECG 12/05/2024 13:37:23 First degree AV block now present Atrial fibrillation no longer present Myocardial infarct finding still present Electronically Signed On 12-10-2024 14:36:07 CDT by Yang Prakash Please click the below link to view image of tracing.
== END 2024-12-09 16:50 | disposition home or self-care (01) ==
LOC: DAH 05:52
PROVIDERS: ATTEND Internal Medicine Cardiovascular Disease
DX: I48.19 Other persistent atrial fibrillation (principal); I44.0 Atrioventricular block, first degree; I25.2 Old myocardial infarction; I48.91 Unspecified atrial fibrillation; I48.4 Atypical atrial flutter; Z79.899 Other long term (current) drug therapy; Z98.890 Other specified postprocedural states
CPT/HCPCS: 80048; 85025; 85610; 85730; 36415; 93005 ×2; 93656; 93657 ×2; 85347 ×9; C1894 ×3; C1732 ×3; A4649 ×2; C1760 ×3; C1730; C1766; J3010 ×2; J3490 ×8; J1100; J0330; J7030; J2003; J2720; J1644 ×3; J2250 ×2; J2704; J2405; J2371; A4215; A4222; A4221; A4663; A4216; A4606; A4223 ×3; 92960